=== PATIENT | female | born 1995 | race Two or more races ===

== ENCOUNTER 2017-10-30 11:51 | Emergency (ER) | payer OTHER ==
[~2017-10-30] VITALS: Ht 162.6 cm; Wt 74.4 kg
[~2017-10-30 11:51] MED LIST: FIORICET 50-301 EACH PO; RHINOCORT ALL8.43 ML NS; TUSSI-PRES LIQ118 ML PO; XYZAL5 MG PO
[2017-10-30] MEDS ORDERED: RISPERDAL0.25 MG PO (12:01)
[2017-10-30] MEDS ORDERED: ZOLOFT25 MG PO (12:01)
== END 2017-10-30 19:52 | disposition home or self-care (01) ==
LOC: EMR PED 11:51 → ER 11:51
DX: R30.0 Dysuria (principal); K59.09 Other constipation; R10.2 Pelvic and perineal pain

== ENCOUNTER 2017-11-25 03:20 | Emergency (ER) | payer OTHER ==
[~2017-11-25] VITALS: Ht 162.6 cm; Wt 76.2 kg
[~2017-11-25 03:20] MED LIST changes: +RISPERDAL0.25 MG PO; +ZOLOFT25 MG PO
[2017-11-25] MEDS ORDERED: VISTARIL50 MG (03:37)
== END 2017-11-25 21:18 | disposition designated cancer center or children's hospital (05) ==
LOC: ER 03:20
DX: T43.591A Poisoning by other antipsychotics and neuroleptics, accidental (unintentional), initial encounter (principal); F32.89 Other specified depressive episodes; Y92.89 Other specified places as the place of occurrence of the external cause